=== PATIENT | male | born 1990 | race Caucasian/White ===

== ENCOUNTER 2017-04-15 08:46 | Emergency (ER) | payer MEDICAID ==
[~2017-04-15] VITALS: Ht 177.8 cm; Wt 76.0 kg
[2017-04-15] MEDS ORDERED: FLUORESCEIN SODIUM 1MG/STRIP OP ONE (11:15)
[2017-04-15] MEDS ORDERED: KETOROLAC 60MG/2ML VIAL IM ONE (11:15)
[2017-04-15] MEDS ORDERED: TETRACAINE 0.5% OPHTH DROPS 4ML OP ONE (11:15)
[2017-04-15 15:10] VITALS: BP 131/67
== END 2017-04-15 15:27 | disposition home or self-care (01) ==
LOC: ER 08:59
DX: H10.9 Unspecified conjunctivitis (principal)
CPT/HCPCS: 96372; 99283; J1885